=== PATIENT | female | born 1990 | race African-American/Black ===

== ENCOUNTER → 2018-03-19 | Outpatient (CLI) | payer MEDICARE, MEDICAID ==
[~2018-03-19] MED LIST: PNV1TABL47 PO
== END | disposition home or self-care (01) ==
LOC: CFH 09:09
PROVIDERS: ATTEND Psychiatry & Neurology Neurology
DX: R11.2 Nausea with vomiting, unspecified (principal)
CPT/HCPCS: 70551

== ENCOUNTER 2019-05-25 11:09 | Emergency (ER) | payer MEDICARE, MEDICAID ==
[~2019-05-25] VITALS: Ht 175.3 cm; Wt 86.0 kg
[2019-05-25 11:13] VITALS: BP 145/99
--- NOTE | 2019-05-25 11:24 | NUR ---
Pt JAX from [facility]. seen at [facility] yest for n/v/d and opiate withdrawal sx. 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 pt wants to stop bc mom recently of opiate od. at [facility], told they cannot give her meds or lower dose. pt flushed all her pills and has no more. pt c/o nausea, tearful, speaking w/ nishi Ho in progress. pt stating she is here for pain management before she goes back to [facility]. c/o feeling dehydrated. last pain pill yest 0400. no vomiting today but diarrhea. VSS. call suh in reach.
--- NOTE | 2019-05-25 11:34 | NUR ---
Pt speaking w/ Dr. Leyva. Pt verbalizes "I'm at my wits end I don't know what to do." asked pt if acutely suicidal and pt sts no. Asked pt if she is safe to be alone. Pt sts she is. MD at bedside for discussion of POC, pt verbalizes wanting pain medicine and a lower dose, sts she will go back to [facility] and speak with doctor there.
== END 2019-05-25 11:49 | disposition left against medical advice (07) ==
LOC: ED 11:40
DX: F11.20 Opioid dependence, uncomplicated (principal); G89.29 Other chronic pain; Z72.9 Problem related to lifestyle, unspecified; Z90.49 Acquired absence of other specified parts of digestive tract
CPT/HCPCS: 99283

== ENCOUNTER 2019-06-01 01:51 | Emergency (ER) | payer MEDICARE, MEDICAID ==
[~2019-06-01] VITALS: Ht 170.2 cm; Wt 88.0 kg
[2019-06-01] MEDS ORDERED: DIAZEPAM 5 MG TABLET ONE (02:18)
[2019-06-01] MEDS ORDERED: KETOROLAC 30 MG/1 ML ONE (02:18)
[2019-06-01] MEDS: KETOROLAC 30 MG/1 ML IM ONE ×2 (02:21→02:25)
[2019-06-01] MEDS ORDERED: DIAZEPAM 5 MG TABLET PO ONE (02:30)
--- NOTE | 2019-06-01 02:43 | NUR ---
PT MEDICATED PER AUG. RESTING COMFORTABLY. FRIEND AT BEDSIDE.
[2019-06-01 03:08] VITALS: BP 144/92
== END 2019-06-01 03:16 | disposition home or self-care (01) ==
LOC: ED 02:04
DX: G89.29 Other chronic pain (principal); M54.9 Dorsalgia, unspecified; M54.2 Cervicalgia
CPT/HCPCS: 99283; J1885

== ENCOUNTER → 2020-12-09 | Outpatient (CLI) | payer MEDICARE, MEDICAID | END | disposition home or self-care (01) | LOC: CFH 09:00 | PROVIDERS: ATTEND Neurological Surgery | DX: S22.060G Wedge compression fracture of T7-T8 vertebra, subsequent encounter for fracture with delayed healing (principal); M41.84 Other forms of scoliosis, thoracic region | CPT/HCPCS: 72072 ==